=== PATIENT | female | born 1960 | race Hispanic/Latino ===

== ENCOUNTER → 2024-04-23 | Day surgery (SDC) | payer OTHER ==
[~2024-04-23] MED LIST: AMLODIPINE BESYL5 MG PO; ASPIRIN 325 MG TAB PO SCH; ASPIRIN81 MG PO; CELECOXIB 100 MG CAP PO SCH; DIPHENHYDRAMINE HCL INJ 50 MG/ML VIAL IV PRN; DOCUSATE SODIUM 100 MG CAP PO PRN; HYDROCODONE/APAP 5MG-325MG TAB PO PRN; HYDROCODONE/APAP 7.5MG-325MG 1 EA TAB PO PRN; LOSARTAN-HCTZ1 EAC1 PO; ONDANSETRON HCL INJ 2MG/ML 2ML 2 MG/ML VIAL IV PRN; PRAVASTATIN SOD40 MG PO; ROPIVACAINE 246.25 MG, EPINEPHRINE HCL 1:1000 1ML 0.5 MG, CLONIDINE HCL 0.08 MG, KETORO... INJ ONE; ROPIVACAINE/EPI/CLONIDINE/KET 50 ML SYRINGE INJ ONE; SODIUM CHLORIDE 0.9% 1000ML 1,000 ML IV SCH; SODIUM CHLORIDE 0.9% 500ML 500 ML ONE; TRANEXAMIC ACID 20 ML ONE; Vancomycin IV 500 MG ONE
[2024-04-23] MEDS: CELECOXIB 200 MG CAP ONE (07:38)
[2024-04-23] MEDS: DEXAMETHASONE SOD PHOS 10 MG/1 ML VIAL ONE (07:38)
[2024-04-23] MEDS: GABAPENTIN 300 MG CAP ONE (07:38)
[2024-04-23] MEDS: LACTATED RINGER'S 1,000 ML ONE (07:39)
[2024-04-23] MEDS: CEFAZOLIN SODIUM 2 GM ONE (07:39)
[2024-04-23 10:40] VITALS: TEMP 97.5
[2024-04-23 12:50] VITALS: BP 136/86; PULSE 73; RESP 18; O2SAT 98
== END | disposition home health service (06) ==
LOC: OR 06:35
PROVIDERS: ATTEND Specialist
DX: M17.12 Unilateral primary osteoarthritis, left knee (principal); G89.29 Other chronic pain; D64.9 Anemia, unspecified; I10 Essential (primary) hypertension; E78.5 Hyperlipidemia, unspecified; E66.01 Morbid (severe) obesity due to excess calories; Z01.812 Encounter for preprocedural laboratory examination; Z79.899 Other long term (current) drug therapy; Z79.82 Long term (current) use of aspirin; Z68.30 Body mass index [BMI] 30.0-30.9, adult
CPT/HCPCS: 27447; 73560; 86850; 86900; 97116; 97161; 97530; C1713 ×2; C1776 ×3; J1100; J3370; J7040; J7121; J0171; J0690; J1885; J2795

== ENCOUNTER 2024-04-30 11:00 | Outpatient (RCR) | payer BC ==
[~2024-04-30 11:00] MED LIST changes: -ASPIRIN 325 MG TAB PO SCH; -CELECOXIB 100 MG CAP PO SCH; -DIPHENHYDRAMINE HCL INJ 50 MG/ML VIAL IV PRN; -DOCUSATE SODIUM 100 MG CAP PO PRN; -HYDROCODONE/APAP 5MG-325MG TAB PO PRN; -HYDROCODONE/APAP 7.5MG-325MG 1 EA TAB PO PRN; -ONDANSETRON HCL INJ 2MG/ML 2ML 2 MG/ML VIAL IV PRN; -ROPIVACAINE 246.25 MG, EPINEPHRINE HCL 1:1000 1ML 0.5 MG, CLONIDINE HCL 0.08 MG, KETORO... INJ ONE; -ROPIVACAINE/EPI/CLONIDINE/KET 50 ML SYRINGE INJ ONE; -SODIUM CHLORIDE 0.9% 1000ML 1,000 ML IV SCH; -SODIUM CHLORIDE 0.9% 500ML 500 ML ONE; -TRANEXAMIC ACID 20 ML ONE; -Vancomycin IV 500 MG ONE
== END 2024-05-02 ==
LOC: PT 11:00
PROVIDERS: ATTEND Physician Assistant
DX: Z47.1 Aftercare following joint replacement surgery (principal); Z96.652 Presence of left artificial knee joint

== ENCOUNTER 2024-05-29 11:00 | Outpatient (RCR) | payer BC | END 2024-06-01 | LOC: PT 11:00 | PROVIDERS: ATTEND Physician Assistant | DX: Z47.1 Aftercare following joint replacement surgery (principal); Z96.652 Presence of left artificial knee joint ==

== ENCOUNTER → 2024-07-02 | Outpatient (RCR) | payer BC | LOC: PT 06-04 11:27 | PROVIDERS: ATTEND Physician Assistant | DX: Z47.1 Aftercare following joint replacement surgery (principal); Z96.651 Presence of right artificial knee joint ==

== ENCOUNTER 2024-07-15 09:00 | Outpatient (RCR) | payer BC | END 2024-08-02 | LOC: PT 09:00 | PROVIDERS: ATTEND Physician Assistant | DX: Z47.1 Aftercare following joint replacement surgery (principal); Z96.652 Presence of left artificial knee joint; R26.2 Difficulty in walking, not elsewhere classified ==